=== PATIENT | female | born 2000 | race Caucasian/White ===

== ENCOUNTER 2021-07-23 11:41 | Outpatient (CLI) | payer BC ==
[2021-07-23 13:59] LABS: #Basophils 0.1 10x3/uL (0.0-0.2); #Eosinphils 0.1 10x3/uL (0.0-0.5); #Monocytes 0.7 10x3/uL (0.0-1.1); #Neutrophils 2.7 10x3/uL (1.5-8.4); %Basophils 1.2 % (0.0-2.0); %Lymphocytes 39.9 % (18.0-47.0); %Monocytes 12.2 % (0.0-10.0); %Neutrophils 45.5 % (40.0-75.0); Mean Corpuscular HGB CONC 32.5 g/dL (32.0-36.0); Mean Corpuscular Hemoglobin 27.3 pg (27.0-33.0); Mean Corpuscular Volume 83.9 fl (81.6-98.3); Mean Platelet Volume 11.7 fl (7.4-10.4); Platelet Count 197 10x3/uL (150-450); RBC Distribution Width 14.7 % (11.5-14.5); Red Blood Cell (RBC) Count 4.77 10x6/uL (3.90-5.03); White Blood Cell (WBC) Count 5.9 10x3/uL (3.5-10.5)
[2021-07-23 14:23] LABS: Anion Gap 12 mmol/L (10-20); BUN (Urea Nitrogen) 12 mg/dL (7.0-18.7); Calc. Creatinine Clearance 0 mL/min (70-130); Calcium 9.4 mg/dL (7.8-10.44); Carbon Dioxide 27 mmol/L (22-29); Chloride 103 mmol/L (98-107); Glucose 78 mg/dL (70-105); Potassium 4.5 mmol/L (3.5-5.1); Sodium 137 mmol/L (136-145)
[2021-07-24 12:27] LABS: SARS-CoV-2 PCR by NAA Not Detected (NotDetected)
== END 2021-07-23 11:42 | disposition home or self-care (01) ==
LOC: LABBT 11:41
PROVIDERS: ATTEND Surgery
DX: Z01.812 Encounter for preprocedural laboratory examination (principal); K40.20 Bilateral inguinal hernia, without obstruction or gangrene, not specified as recurrent; Z20.822 Contact with and (suspected) exposure to COVID-19
CPT/HCPCS: 80048; 85025; U0003; U0005

== ENCOUNTER 2021-07-28 09:56 | Day surgery (SDC) | payer BC ==
[2021-07-26 15:43] VITALS: BMI 20.9
[2021-07-28] MEDS ORDERED: Lidocaine 1% MPF 2 ML VIAL ONE (10:26)
[2021-07-28] MEDS ORDERED: Scopolamine 1.5 mg/72 hour Patch ONE (11:23)
[2021-07-28] MEDS ORDERED: Bupivacaine 0.25% 10 ML VIAL ONE (13:01)
[2021-07-28] MEDS ORDERED: Lidocaine 1% w/Epinephrine 1:100K 20 ML VIAL ONE (13:01)
[2021-07-28] MEDS ORDERED: Fentanyl 250 MCG/5 ML VIAL ONE (13:04)
[2021-07-28] MEDS ORDERED: Famotidine/PF 20 mg/2ml Vial ONE (13:04)
[2021-07-28] MEDS ORDERED: ceFAZolin (BATCH) 2 GM/100 ML BAG ONE (13:06)
[2021-07-28] MEDS ORDERED: Rocuronium Bromide 10 MG/ML (10ML VIAL) ONE (13:18)
[2021-07-28] MEDS ORDERED: PROPOFOL 200 MG/20 ML VIAL ONE (13:18)
[2021-07-28] MEDS ORDERED: Glycopyrrolate 0.2 MG/ML 5 ML SYRINGE ONE (13:18)
[2021-07-28] MEDS ORDERED: Lidocaine 1% PF 5 ML VIAL ONE (13:18)
[2021-07-28] MEDS ORDERED: Dexamethasone 20 MG/5 ML VIAL ONE (13:18)
[2021-07-28] MEDS ORDERED: Ondansetron PF 4 MG/2 ML Vial ONE (13:18)
[2021-07-28] MEDS ORDERED: Ketorolac Tromethamine 30 MG/ML VIAL ONE (13:18)
[2021-07-28] MEDS ORDERED: HYDROcodone/Acetaminophen 5/325 mg Tablet ONE (15:36)
== END 2021-07-28 16:02 | disposition home or self-care (01) ==
LOC: SDC 09:56
PROVIDERS: ATTEND Surgery
PROC: 8E0W4CZ Robotic Assisted Procedure of Trunk Region, Percutaneous Endoscopic Approach (ICD-10-PCS; principal; 2021-07-28)
PROC: 0YUA4JZ Supplement Bilateral Inguinal Region with Synthetic Substitute, Percutaneous Endoscopic Approach (ICD-10-PCS; principal; 2021-07-28)
DX: K40.20 Bilateral inguinal hernia, without obstruction or gangrene, not specified as recurrent (principal); J45.909 Unspecified asthma, uncomplicated
CPT/HCPCS: C1781; J0690; J1100; J1885; J2405; J2704; J3010; S0020; S0028